=== PATIENT | female | born 2000 | race Caucasian/White ===

== ENCOUNTER 2021-11-08 20:09 | Observation (INO) | payer BC ==
[2021-11-08] MEDS ORDERED: Sodium Chloride 0.9% 1,000 ML IV ONE (21:45)
[2021-11-08] MEDS ORDERED: Sodium Chloride 0.9% 2.5 ML Syringe FLUSH PRN (21:45)
[2021-11-08] MEDS ORDERED: Sodium Chloride 0.9% 10 ML Syringe FLUSH PRN (21:45)
[2021-11-08] MEDS ORDERED: fentaNYL 50 MCG/ML SDV IVPUSH ONE (21:45)
[2021-11-08] MEDS ORDERED: Ondansetron 4 MG/2 ML SDV IVPUSH ONE (21:45)
--- NOTE | 2021-11-08 21:52 | EDM.PDOC ---
ED HPI GENERAL MEDICAL PROBLEM - General Chief Complaint: Abdominal Pain Stated Complaint: EMS ARRIVAL Time Seen by Provider: 11/08/21 20:14 - History of Present Illness INITIAL COMMENTS - FREE TEXT/NARRATIVE: HISTORY AND PHYSICAL: History of present illness: This is a 20-year-old 1 para 0 female who is transferred from [facility] for further evaluation of a possible ectopic . Patient's last menstrual period was approximately September 28. Patient presented to [facility] today secondary to severe pain to her right lower quadrant. Patient denies any recent fevers, shakes, chills. Patient complains of nausea with no vomiting or diarrhea. Patient has any dysuria, frequency or urgency. Patient planes of slight vaginal bleeding. Patient reports no chest pain or shortness of breath. Patient reports pain greatest in the right lower quadrant. Patient has any cough cold or rhinorrhea. There was no ultrasound capabilities at [facility] so she was transferred to [place] [facility] for further evaluation and ultrasound. I did receive a phone call from our cytotechnologist supervisor that she was able to visualize heart activity within the patient's right ovary. Patient denies any history of hypertension, diabetes, liver, lung, kidney problems. Patient denies any tobacco, alcohol, drugs. Patient has no known drug allergies. Review of systems: As per history of present illness and below otherwise all systems reviewed and negative. Past medical history: As per history of present illness and as reviewed below otherwise noncontributory. Surgical history: As per history of present illness and as reviewed below otherwise noncontributory. Social history: No reported history of drug abuse. Family history: As per history of present illness and as reviewed below otherwise noncontributory. Physical exam: This patient was seen and evaluated during the 2019 SARS-CoV-2 novel coronavirus pandemic period. Community viral transmission is ongoing at time of this encounter and the emergency department is operating under pandemic response procedures. Constitutional: Patient is oriented to person, place, and time. Appears well- developed and well-nourished. No distress. HEENT: Moist mucous membranes Head: Normocephalic and atraumatic Eyes: Right eye exhibits no discharge. Left eye exhibits no discharge. No scleral icterus Neck: Normal range of motion. No tracheal deviation present. Cardiovascular: Normal rate and regular rhythm. Pulmonary: Effort normal, no respiratory distress. Abd: Soft, nondistended, no rebound/guarding, no psoas or obturator signs, no tenderness at Mcberney's point, no Chavez's sign. Pt does not present with an exam that would be consistent with an acute surgical abdomen at this time. Patient does have tenderness to palpation to the right lower quadrant. Musculoskeletal: Normal range of motion Neurologic: Alert and oriented to person, place and time. Skin: [place], warm and dry. Psychiatric: Normal mood and affect. Behavior is normal. Judgment and thought content normal. Nursing note and vital signs have been reviewed Diagnostics: Ultrasound pelvis: Consistent with heart activity noted within the right ovary. This is concerning for a right ectopic . Type and screen CBC, CMP, beta-hCG, urinalysis Therapeutics: Fentanyl 50 mcg IV, Zofran 4 mg IV, NSS. Assessment and plan: 20-year-old female who presents ER today from [facility] for further evaluation of possible Covid . Patient's ultrasound here appears to be consistent with an ectopic . Case has been discussed with Dr. Beltrán upon discovery of the ultrasound report. He has agreed to assist us with observing patient in the hospital for definitive management of ectopic . Patient is still complaining of abdominal pain and discomfort. She will be given fentanyl 50 mcg IV as well as Zofran 4 mg IV and will be reevaluated. Definitive disposition and diagnosis as appropriate pending reevaluation and review of above. Abdomen Pain Score (Numeric/FACES): 6 - Related Data Allergies Allergy/AdvReac Type Severity Reaction Status Date / Time No Known Allergies Allergy Verified 11/08/21 20:15 Home Meds: Home Meds . [No Known Home Meds] 11/08/21 [History] Past Medical History HEENT History: Reports: None Cardiovascular History: Reports: None Respiratory History: Reports: None Gastrointestinal History: Reports: None Genitourinary History: Reports: None Other COLLAR FUSER History: hx of possible ovarian cyst Musculoskeletal History: Reports: None Neurological History: Reports: None Psychiatric History: Reports: None Endocrine/Metabolic History: Reports: None Hematologic History: Reports: None Immunologic History: Reports: None Oncologic (Cancer) History: Reports: None Dermatologic History: Reports: None - Infectious Disease History Infectious Disease History: Reports: None - Past Surgical History Head Surgeries/Procedures: Reports: None Cardiovascular Surgical History: Reports: None Social & Family History - Family History HEENT: Reports: None - Tobacco Use Tobacco Use Status *Q: Never Tobacco User Second Hand Smoke Exposure: No - Caffeine Use Caffeine Use: Reports: Coffee, Soda - Recreational Drug Use Recreational Drug Use: No ED ROS GENERAL - Review of Systems Review Of Systems: See Below ED EXAM, GENERAL - Physical Exam Exam: See Below Course - Vital Signs Last Recorded V/S: Last Vital Signs Temp 98.2 F 11/08/21 20:16 Pulse 105 H 11/08/21 20:26 Resp 18 11/08/21 20:16 BP 139/77 11/08/21 20:26 Pulse Ox 98 11/08/21 20:26 - Orders/Labs/Meds Orders: Active Orders 24 hr Category Date Time Status Patient Status [ADT] Routine ADT 11/08/21 21:47 Active OB 1st Tri Sgl 1st Gest [US] Stat Exams 11/08/21 20:16 Taken CBC WITH AUTO DIFF [HEME] Stat Lab 11/08/21 21:45 Ordered COMPREHENSIVE METABOLIC PN,CMP [CHEM] Stat Lab 11/08/21 21:45 Ordered HCG QUANTITATIVE [CHEM] Stat Lab 11/08/21 21:45 Ordered TYPE AND SCREEN [BBK] Stat Lab 11/08/21 21:46 Ordered Sodium Chloride 0.9% [Normal Saline] 1,000 ml Med 11/08/21 21:45 Active IV .Bolus Sodium Chloride 0.9% [Saline Flush] Med 11/08/21 21:45 Active 10 ml FLUSH ASDIRECTED PRN Sodium Chloride 0.9% [Saline Flush] Med 11/08/21 21:45 Active 2.5 ml FLUSH ASDIRECTED PRN Saline Lock Insert [OM.PC] Stat Oth 11/08/21 21:45 Ordered Medication Orders Sodium Chloride (Normal Saline) 1,000 mls @ 999 mls/hr IV .Bolus ONE Stop: 11/08/21 22:45 Sodium Chloride (Sodium Chloride 0.9% 10 Ml Syringe) 10 ml FLUSH ASDIRECTED PRN PRN Reason: Keep Vein Open Sodium Chloride (Sodium Chloride 0.9% 2.5 Ml Syringe) 2.5 ml FLUSH ASDIRECTED PRN PRN Reason: Keep Vein Open Meds: Medications Generic Name Dose Route Start Last Admin Trade Name Freq PRN Reason Stop Dose Admin Sodium Chloride 1,000 mls @ 999 mls/hr 11/08/21 21:45 Normal Saline IV 11/08/21 22:45 .Bolus ONE Sodium Chloride 10 ml 11/08/21 21:45 Sodium Chloride 0.9% 10 Ml Syringe FLUSH ASDIRECTED PRN Keep Vein Open Sodium Chloride 2.5 ml 11/08/21 21:45 Sodium Chloride 0.9% 2.5 Ml Syringe FLUSH ASDIRECTED PRN Keep Vein Open Discontinued Medications Generic Name Dose Route Start Last Admin Trade Name Zoran PRN Reason Stop Dose Admin Fentanyl 50 mcg 11/08/21 21:45 Fentanyl 50 Mcg/Ml Sdv IVPUSH 11/08/21 21:46 ONETIME ONE Ondansetron HCl 4 mg 11/08/21 21:45 Ondansetron 4 Mg/2 Ml Sdv IVPUSH 11/08/21 21:46 ONETIME ONE Departure - Departure Time of Disposition: 21:51 Disposition: Refer to Observation Condition: Good Clinical Impression: Ectopic - Discharge Information Referrals: PCP,None [Primary Care Provider] - Sepsis Event Note (ED) - Evaluation Sepsis Screening Result: No Definite Risk - Focused Exam Vital Signs: Vital Signs Temp Pulse Resp BP Pulse Ox 11/08/21 20:26 105 H 139/77 98 11/08/21 20:16 98.2 F 98 18 139/77 98 - My Orders Last 24 Hours: My Active Orders 11/08/21 20:16 OB 1st Tri Sgl 1st Gest [US] Stat 11/08/21 21:45 CBC WITH AUTO DIFF [HEME] Stat COMPREHENSIVE METABOLIC PN,CMP [CHEM] Stat HCG QUANTITATIVE [CHEM] Stat Sodium Chloride 0.9% [Normal Saline] 1,000 ml IV .Bolus Sodium Chloride 0.9% [Saline Flush] 10 ml FLUSH ASDIRECTED PRN Sodium Chloride 0.9% [Saline Flush] 2.5 ml FLUSH ASDIRECTED PRN Saline Lock Insert [OM.PC] Stat 11/08/21 21:46 TYPE AND SCREEN [BBK] Stat 11/08/21 21:47 Patient Status [ADT] Routine - Assessment/Plan Last 24 Hours: My Active Orders 11/08/21 20:16 OB 1st Tri Sgl 1st Gest [US] Stat 11/08/21 21:45 CBC WITH AUTO DIFF [HEME] Stat COMPREHENSIVE METABOLIC PN,CMP [CHEM] Stat HCG QUANTITATIVE [CHEM] Stat Sodium Chloride 0.9% [Normal Saline] 1,000 ml IV .Bolus Sodium Chloride 0.9% [Saline Flush] 10 ml FLUSH ASDIRECTED PRN Sodium Chloride 0.9% [Saline Flush] 2.5 ml FLUSH ASDIRECTED PRN Saline Lock Insert [OM.PC] Stat 11/08/21 21:46 TYPE AND SCREEN [BBK] Stat 11/08/21 21:47 Patient Status [ADT] Routine
--- NOTE | 2021-11-08 22:08 | US ---
INDICATION: Pelvic pain and bleeding. Early . TECHNIQUE: Endovaginal pelvic ultrasound utilizing grayscale, color Doppler, and spectral Doppler sonography. COMPARISON: None available. FINDINGS: Anteverted uterus with endometrial stripe measuring 13 mm in thickness. No intrauterine gestational sac identified. The right adnexal region demonstrates a heterogeneous mixed echogenicity structure measuring 6 x 4 x 4.7 x 4.1 cm. Gestational sac located within this structure. pole identified with a crown-rump length of 3.1 cm, corresponding with an estimated gestational age of 6 weeks and 0 days. Positive cardiac activity identified with a heart rate of 113 beats per minute. Notably, a normal right ovary is not definitively visualized. Left ovary measures 2.8 x 1.6 x 2.1 cm. Small volume pelvic free fluid. IMPRESSION: Right adnexal ectopic with positive cardiac activity and an estimated gestational age of 6 weeks and 0 days based on crown-rump length. A normal right ovary is not definitively visualized and therefore location of the ectopic relative to the ovary is uncertain. Small-moderate volume pelvic free fluid. Emergent obstetric/gynecologic consultation recommended. Case discussed with Dr. Ryder on 11/08/2021 at 9:50 p.m. Dictated by Fritz Nieto MD @ 11/08/2021 10:07:25 PM Dictated by: Fritz Nieto MD @ 11/08/2021 22:08:30 (Electronically Signed)
[2021-11-08 22:56] LABS: BLOOD UREA NITROGEN,BUN 9 mg/dL (7.0-18.0); CARBON DIOXIDE,CO2 26.7 mmol/L (21.0-32.0); CHLORIDE,CL 102 mmol/L (98-107); GLUCOSE RANDOM 105 mg/dL (74-106); POTASSIUM,K 4.7 mmol/L (3.5-5.1); SODIUM,NA 139 mmol/L (136-145)
[2021-11-09] MEDS ORDERED: Morphine 4 MG/ML VIAL IVPUSH PRN (00:22)
[2021-11-09] MEDS ORDERED: Ondansetron 4 MG/2 ML SDV IVPUSH PRN (00:22)
[2021-11-09] MEDS: Sodium Chloride 0.9% 1,000 ML IV SCH ×2 (01:00→08:37)
--- NOTE | 2021-11-09 09:29 | PCM.HP.2 ---
H&P History of Present Illness - General Date of Service: 11/09/21 Admit Problem/Dx: Admission Diagnosis/Problem Admission Diagnosis/Problem Ectopic Source of Information: Patient History Limitations: Reports: No Limitations - History of Present Illness Onset of Symptoms: Reports: Today, Sudden Duration of Symptoms: Reports: Constant Location: Reports: Abdomen Quality: Reports: Throbbing Severity: Moderate Improves with: Reports: None Worsens with: Reports: None Associated Symptoms: Reports: No Other Symptoms Abdomen Pain Score (Numeric/FACES): 6 Left Lower Abdomen Pain Score (Numeric/FACES): 2 Right Lower Abdomen Pain Score (Numeric/FACES): 5 - Related Data Allergies/Adverse Reactions: Allergies Allergy/AdvReac Type Severity Reaction Status Date / Time No Known Allergies Allergy Verified 11/08/21 20:15 Home Medications: Home Meds . [No Known Home Meds] 11/08/21 [History] Past Medical History HEENT History: Reports: None Cardiovascular History: Reports: None Respiratory History: Reports: None Gastrointestinal History: Reports: None Genitourinary History: Reports: Pyelonephritis, UTI, Recurrent, Other (See Below) Other Genitourinary History: reflux as child and had a bilateral ureteral reimplantation Other OB/BYN History: hx of possible ovarian cyst Musculoskeletal History: Reports: Fracture Neurological History: Reports: None Psychiatric History: Reports: None Endocrine/Metabolic History: Reports: None Hematologic History: Reports: None Immunologic History: Reports: None Oncologic (Cancer) History: Reports: None Dermatologic History: Reports: None - Infectious Disease History Infectious Disease History: Reports: Novel Coronavirus - Past Surgical History Head Surgeries/Procedures: Reports: None HEENT Surgical History: Reports: None Cardiovascular Surgical History: Reports: None Respiratory Surgical History: Reports: None GI Surgical History: Reports: None Female Surgical History: Reports: None Musculoskeletal Surgical History: Reports: None Social & Family History - Family History HEENT: Reports: None Cardiac: Reports: [place] Respiratory: Reports: None GI: Reports: None : Reports: None OBGYN: Reports: Endometriosis, , Other (See Below) Other OBGYN Family History: Ovarian cysts Musculoskeletal: Reports: Osteoarthritis Neurological: Reports: None Psychiatric: Reports: None Endocrine/Metabolic: Reports: None Hematologic: Reports: None Immunologic: Reports: None Dermatologic: Reports: None Oncologic: Reports: Cervix - Tobacco Use Tobacco Use Status *Q: Never Tobacco User Second Hand Smoke Exposure: No - Caffeine Use Caffeine Use: Reports: Coffee, Soda, Tea - Recreational Drug Use Recreational Drug Use: No H&P Review of Systems - Review of Systems: Review Of Systems: See Below General: Reports: No Symptoms HEENT: Reports: No Symptoms Pulmonary: Reports: No Symptoms Cardiovascular: Reports: No Symptoms Gastrointestinal: Reports: No Symptoms Genitourinary: Reports: No Symptoms Musculoskeletal: Reports: No Symptoms Skin: Reports: No Symptoms Psychiatric: Reports: No Symptoms Neurological: Reports: No Symptoms Hematologic/Lymphatic: Reports: No Symptoms Immunologic: Reports: No Symptoms Exam - Exam Exam: See Below - Vital Signs Vital Signs: Last Vital Signs Temp 36.2 C 11/09/21 04:00 Pulse 78 11/09/21 04:00 Resp 16 11/09/21 04:00 BP 114/57 L 11/09/21 04:00 Pulse Ox 97 11/09/21 04:00 Weight: 62.596 kg - Exam General: Alert, Oriented, 4 HEENT: PERRLA, Hearing Intact, Mucosa Moist & [place], Nares Patent, Normal Nasal Septum, Posterior Pharynx Clear, Conjunctiva Clear, EOMI, EACs Clear, TMs Clear Neck: Supple, Trachea Midline, 2 Lungs: Clear to Auscultation, Normal Respiratory Effort Cardiovascular: Regular Rate, Regular Rhythm GI/Abdominal Exam: Normal Bowel Sounds, Soft, Non-Tender, No Organomegaly, No Distention, No Abnormal Bruit, No Mass, Pelvis Stable (Female) Exam: Normal External Exam, Normal Speculum Exam, Normal Bimanual Exam Rectal (Female) Exam: Normal Exam, Normal Rectal Tone Back Exam: Normal Inspection, Full Range of Motion, NT Extremities: Normal Inspection, Normal Range of Motion, Non-Tender, No Pedal Edema, Normal Capillary Refill Skin: Warm, Dry, Intact Neurological: Cranial Nerves Intact, Reflexes Equal Bilateral Neuro Extensive - Mental Status: Alert, Oriented x3, Normal Mood/Affect, Normal Cognition Neuro Extensive - Motor, Sensory, Reflexes: CN II-XII Intact, Normal Gait, Normal Reflexes Psychiatric: Alert, Normal Affect, Normal Mood - Patient Data Lab Results Last 24 hrs: Laboratory Results - last 24 hr 11/08/21 11/08/21 11/08/21 Range/Units 21:43 21:45 21:45 WBC 16.76 H (4.0-11.0) K/uL RBC 4.06 L (4.30-5.90) M/uL Hgb 13.0 (12.0-16.0) g/dL Hct 37.2 (36.0-46.0) % MCV 91.6 (80.0-98.0) fL MCH 32.0 (27.0-32.0) pg MCHC 34.9 (31.0-37.0) g/dL RDW Std Deviation 40.3 (28.0-62.0) fl RDW Coeff of Wale 12 (11.0-15.0) % Plt Count 310 (150-400) K/uL MPV 10.90 (7.40-12.00) fL Neut % (Auto) 87.1 H (48.0-80.0) % Lymph % (Auto) 8.7 L (16.0-40.0) % Smith % (Auto) 4.1 (0.0-15.0) % Eos % (Auto) 0.0 (0.0-7.0) % Baso % (Auto) 0.1 (0.0-1.5) % Neut # (Auto) 14.6 H (1.4-5.7) K/uL Lymph # (Auto) 1.5 (0.6-2.4) K/uL Smith # (Auto) 0.7 (0.0-0.8) K/uL Eos # (Auto) 0.0 (0.0-0.7) K/uL Baso # (Auto) 0.0 (0.0-0.1) K/uL Nucleated RBC % 0.0 /100WBC Nucleated RBCs # 0 K/uL Sodium 139 (136-145) mmol/L Potassium 4.7 (3.5-5.1) mmol/L Chloride 102 (98-107) mmol/L Carbon Dioxide 26.7 (21.0-32.0) mmol/L BUN 9 (7.0-18.0) mg/dL Creatinine 0.7 (0.6-1.0) mg/dL Est Cr Clr Drug Dosing 113.43 mL/min Estimated GFR (MDRD) > 60.0 ml/min Glucose 105 (74-106) mg/dL Calcium 9.2 (8.5-10.1) mg/dL Total Bilirubin 0.7 (0.2-1.0) mg/dL AST 23 (15-37) IU/L ALT 16 (14-63) IU/L Alkaline Phosphatase 79 (46-116) U/L Total Protein 8.0 (6.4-8.2) g/dL Albumin 4.9 (3.4-5.0) g/dL Globulin 3.1 (2.6-4.0) g/dL Albumin/Globulin Ratio 1.6 (0.9-1.6) HCG, Quant 1983.0 mIU/mL SARS-CoV-2 RNA (ANNIKA) (NEGATIVE) Blood Type O POSITIVE Antibody Screen NEGATIVE 11/08/21 11/09/21 Range/Units 22:00 06:12 WBC (4.0-11.0) K/uL RBC (4.30-5.90) M/uL Hgb 11.6 L (12.0-16.0) g/dL Hct 33.9 L (36.0-46.0) % MCV (80.0-98.0) fL MCH (27.0-32.0) pg MCHC (31.0-37.0) g/dL RDW Std Deviation (28.0-62.0) fl RDW Coeff of Wale (11.0-15.0) % Plt Count (150-400) K/uL MPV (7.40-12.00) fL Neut % (Auto) (48.0-80.0) % Lymph % (Auto) (16.0-40.0) % Smith % (Auto) (0.0-15.0) % Eos % (Auto) (0.0-7.0) % Baso % (Auto) (0.0-1.5) % Neut # (Auto) (1.4-5.7) K/uL Lymph # (Auto) (0.6-2.4) K/uL Smith # (Auto) (0.0-0.8) K/uL Eos # (Auto) (0.0-0.7) K/uL Baso # (Auto) (0.0-0.1) K/uL Nucleated RBC % /100WBC Nucleated RBCs # K/uL Sodium (136-145) mmol/L Potassium (3.5-5.1) mmol/L Chloride (98-107) mmol/L Carbon Dioxide (21.0-32.0) mmol/L BUN (7.0-18.0) mg/dL Creatinine (0.6-1.0) mg/dL Est Cr Clr Drug Dosing mL/min Estimated GFR (MDRD) ml/min Glucose (74-106) mg/dL Calcium (8.5-10.1) mg/dL Total Bilirubin (0.2-1.0) mg/dL AST (15-37) IU/L ALT (14-63) IU/L Alkaline Phosphatase (46-116) U/L Total Protein (6.4-8.2) g/dL Albumin (3.4-5.0) g/dL Globulin (2.6-4.0) g/dL Albumin/Globulin Ratio (0.9-1.6) HCG, Quant mIU/mL SARS-CoV-2 RNA (ANNIKA) NEGATIVE (NEGATIVE) Blood Type Antibody Screen Result Diagrams: 11/09/21 06:12 11/08/21 21:45 Imaging Impressions Last 24 hrs: To have ultrasound which is confirmed a right tubal Sepsis Event Note - Evaluation Sepsis Screening Result: No Definite Risk - Focused Exam Vital Signs: Vital Signs Temp Pulse Resp BP Pulse Ox 11/09/21 04:00 36.2 C 78 16 114/57 L 97 11/08/21 23:45 37.3 C 72 14 119/72 98 11/08/21 23:18 36.8 C 92 18 135/68 96 11/08/21 22:56 78 16 133/56 L 97 11/08/21 22:00 86 16 140/80 97 Problem List Initiated/Reviewed/Updated: Yes Orders Last 24hrs: Active Orders 24 hr Category Date Time Status Patient Status [ADT] Routine ADT 11/08/21 21:47 Active Telemetry Monitoring [Cardiac Monitoring] [RC] Q8H Care 11/08/21 23:23 Active NPO Now [Nothing per Oral Now Diet] [DIET] Diet 11/09/21 Breakfast Active Morphine Med 11/09/21 00:22 Active 4 mg IVPUSH Q4H PRN Ondansetron [Zofran] Med 11/09/21 00:22 Active 4 mg IVPUSH Q4H PRN Sodium Chloride 0.9% [Normal Saline] 1,000 ml Med 11/09/21 00:30 Active IV ASDIRECTED Sodium Chloride 0.9% [Saline Flush] Med 11/08/21 21:45 Active 10 ml FLUSH ASDIRECTED PRN Sodium Chloride 0.9% [Saline Flush] Med 11/08/21 21:45 Active 2.5 ml FLUSH ASDIRECTED PRN Saline Lock Insert [OM.PC] Stat Oth 11/08/21 21:45 Ordered Medication Orders Sodium Chloride (Normal Saline) 1,000 mls @ 125 mls/hr IV ASDIRECTED STEVE Last Admin: 11/09/21 08:37 Dose: 125 mls/hr Documented by: Infusion: 11/09/21 08:37 Dose: 125 mls/hr Documented by: Admin: 11/09/21 01:00 Dose: 125 mls/hr Documented by: CHRISTIAN Morphine Sulfate (Morphine 4 Mg/Ml Vial) 4 mg IVPUSH Q4H PRN PRN Reason: Pain Last Admin: 11/09/21 06:28 Dose: 4 mg Documented by: CHRISTIAN Ondansetron HCl (Ondansetron 4 Mg/2 Ml Sdv) 4 mg IVPUSH Q4H PRN PRN Reason: Nausea/Vomiting Last Admin: 11/09/21 06:24 Dose: 4 mg Documented by: CHRISTIAN Sodium Chloride (Sodium Chloride 0.9% 10 Ml Syringe) 10 ml FLUSH ASDIRECTED PRN PRN Reason: Keep Vein Open Last Admin: 11/08/21 22:02 Dose: 10 ml Documented by: SYEDA Sodium Chloride (Sodium Chloride 0.9% 2.5 Ml Syringe) 2.5 ml FLUSH ASDIRECTED PRN PRN Reason: Keep Vein Open Last Admin: 11/08/21 22:04 Dose: 2.5 ml Documented by: SYEDA Assessment/Plan Comment:: 19 years old patient nulliparous she presented to the emergency room with right lower quadrant pain constant her test is positive her last normal menstrual cycle admitted to September she is not using any method of control physical examination is consistent with a tubal abdominal and pelvic ultrasound confirmed a right tubal . The patient to be admitted to the hospital to the outpatient and most likely she would have a diagnostic laparoscopy and excision of her right tubal . The diagnoses and the treatment discussed with the patient and her boyfriend she consented to the procedures we are planning to do it sometime today around noon - Mortality Measure Prognosis:: Good
--- NOTE | 2021-11-09 13:02 | PCM.PREANE ---
Preanesthetic Assessment - Procedure Proposed Procedure: Dx Lap, poss unilateral salpingectomy/oophorectomy - Anesthesia/Transfusion/Family Hx Anesthesia History: Prior Anesthesia Without Reaction Family History of Anesthesia Reaction: No - Review of Systems General: No Symptoms Pulmonary: No Symptoms Cardiovascular: No Symptoms Gastrointestinal: No Symptoms Neurological: No Symptoms Other: Reports: None - Physical Assessment NPO Status Date: 11/08/21 NPO Status Time: 23:00 Vital Signs: Last Vital Signs Temp 97.9 F 11/09/21 08:40 Pulse 67 11/09/21 08:40 Resp 16 11/09/21 08:40 BP 123/69 11/09/21 08:40 Pulse Ox 97 11/09/21 08:40 Height: 5 ft 5 in Weight: 62.596 kg ASA Class: 2 Mental Status: Alert & Oriented x3 Airway Class: Mallampati = 2 Dentition: Reports: Normal Dentition Thyro-Mental Finger Breadths: 3 Mouth Opening Finger Breadths: 3 ROM/Head Extension: Full Lungs: Clear to Auscultation, Normal Respiratory Effort Cardiovascular: Regular Rate, Regular Rhythm - Lab Values: Laboratory Last Values WBC 16.76 K/uL (4.0-11.0) H 11/08/21 21:45 RBC 4.06 M/uL (4.30-5.90) L 11/08/21 21:45 Hgb 11.6 g/dL (12.0-16.0) L 11/09/21 06:12 Hct 33.9 % (36.0-46.0) L 11/09/21 06:12 MCV 91.6 fL (80.0-98.0) 11/08/21 21:45 MCH 32.0 pg (27.0-32.0) 11/08/21 21:45 MCHC 34.9 g/dL (31.0-37.0) 11/08/21 21:45 RDW Std Deviation 40.3 fl (28.0-62.0) 11/08/21 21:45 RDW Coeff of Wale 12 % (11.0-15.0) 11/08/21 21:45 Plt Count 310 K/uL (150-400) 11/08/21 21:45 MPV 10.90 fL (7.40-12.00) 11/08/21 21:45 Neut % (Auto) 87.1 % (48.0-80.0) H 11/08/21 21:45 Lymph % (Auto) 8.7 % (16.0-40.0) L 11/08/21 21:45 [place] % (Auto) 4.1 % (0.0-15.0) 11/08/21 21:45 Eos % (Auto) 0.0 % (0.0-7.0) 11/08/21 21:45 Baso % (Auto) 0.1 % (0.0-1.5) 11/08/21 21:45 Neut # (Auto) 14.6 K/uL (1.4-5.7) H 11/08/21 21:45 Lymph # (Auto) 1.5 K/uL (0.6-2.4) 11/08/21 21:45 [place] # (Auto) 0.7 K/uL (0.0-0.8) 11/08/21 21:45 Eos # (Auto) 0.0 K/uL (0.0-0.7) 11/08/21 21:45 Baso # (Auto) 0.0 K/uL (0.0-0.1) 11/08/21 21:45 Nucleated RBC % 0.0 /100WBC 11/08/21 21:45 Nucleated RBCs # 0 K/uL 11/08/21 21:45 Sodium 139 mmol/L (136-145) 11/08/21 21:45 Potassium 4.7 mmol/L (3.5-5.1) 11/08/21 21:45 Chloride 102 mmol/L (98-107) 11/08/21 21:45 Carbon Dioxide 26.7 mmol/L (21.0-32.0) 11/08/21 21:45 BUN 9 mg/dL (7.0-18.0) 11/08/21 21:45 Creatinine 0.7 mg/dL (0.6-1.0) 11/08/21 21:45 Est Cr Clr Drug Dosing 113.43 mL/min 11/08/21 21:45 Estimated GFR (MDRD) > 60.0 ml/min 11/08/21 21:45 Glucose 105 mg/dL (74-106) 11/08/21 21:45 Calcium 9.2 mg/dL (8.5-10.1) 11/08/21 21:45 Total Bilirubin 0.7 mg/dL (0.2-1.0) 11/08/21 21:45 AST 23 IU/L (15-37) 11/08/21 21:45 ALT 16 IU/L (14-63) 11/08/21 21:45 Alkaline Phosphatase 79 U/L (46-116) 11/08/21 21:45 Total Protein 8.0 g/dL (6.4-8.2) 11/08/21 21:45 Albumin 4.9 g/dL (3.4-5.0) 11/08/21 21:45 Globulin 3.1 g/dL (2.6-4.0) 11/08/21 21:45 Albumin/Globulin Ratio 1.6 (0.9-1.6) 11/08/21 21:45 HCG, Quant 1983.0 mIU/mL 11/08/21 21:45 SARS-CoV-2 RNA (ANNIKA) NEGATIVE (NEGATIVE) 11/08/21 22:00 Blood Type O POSITIVE 11/08/21 21:43 Antibody Screen NEGATIVE 11/08/21 21:43 - Allergies Allergies/Adverse Reactions: Allergies Allergy/AdvReac Type Severity Reaction Status Date / Time No Known Allergies Allergy Verified 11/08/21 20:15 - Acknowledgements Anesthesia Type Planned: General Anesthesia Pt an Appropriate Candidate for the Planned Anesthesia: Yes Alternatives and Risks of Anesthesia Discussed w Pt/Guardian: Yes Pt/Guardian Understands and Agrees with Anesthesia Plan: Yes PreAnesthesia Questionnaire HEENT History: Reports: None Cardiovascular History: Reports: None Respiratory History: Reports: None Gastrointestinal History: Reports: None Genitourinary History: Reports: Pyelonephritis, UTI, Recurrent, Other (See Below) Other Genitourinary History: reflux as child and had a bilateral ureteral reimplantation Other OB/BYN History: hx of possible ovarian cyst Musculoskeletal History: Reports: Fracture Neurological History: Reports: None Psychiatric History: Reports: None Endocrine/Metabolic History: Reports: None Hematologic History: Reports: None Immunologic History: Reports: None Oncologic (Cancer) History: Reports: None Dermatologic History: Reports: None - Infectious Disease History Infectious Disease History: Reports: Novel Coronavirus - Past Surgical History Head Surgeries/Procedures: Reports: None HEENT Surgical History: Reports: None Cardiovascular Surgical History: Reports: None Respiratory Surgical History: Reports: None GI Surgical History: Reports: None Female Surgical History: Reports: None Musculoskeletal Surgical History: Reports: None - SUBSTANCE USE Tobacco Use Status *Q: Never Tobacco User Second Hand Smoke Exposure: No Recreational Drug Use History: No - HOME MEDS Home Medications: Home Meds . [No Known Home Meds] 11/08/21 [History] - CURRENT (IN HOUSE) MEDS Current Meds: Current Medications Sodium Chloride (Normal Saline) 1,000 mls @ 125 mls/hr IV ASDIRECTED STEVE Last Admin: 11/09/21 08:37 Dose: 125 mls/hr Documented by: Morphine Sulfate (Morphine 4 Mg/Ml Vial) 4 mg IVPUSH Q4H PRN PRN Reason: Pain Last Admin: 11/09/21 06:28 Dose: 4 mg Documented by: Ondansetron HCl (Ondansetron 4 Mg/2 Ml Sdv) 4 mg IVPUSH Q4H PRN PRN Reason: Nausea/Vomiting Last Admin: 11/09/21 06:24 Dose: 4 mg Documented by: Sodium Chloride (Sodium Chloride 0.9% 10 Ml Syringe) 10 ml FLUSH ASDIRECTED PRN PRN Reason: Keep Vein Open Last Admin: 11/08/21 22:02 Dose: 10 ml Documented by: Sodium Chloride (Sodium Chloride 0.9% 2.5 Ml Syringe) 2.5 ml FLUSH ASDIRECTED PRN PRN Reason: Keep Vein Open Last Admin: 11/08/21 22:04 Dose: 2.5 ml Documented by: Discontinued Medications Fentanyl (Fentanyl 50 Mcg/Ml Sdv) 50 mcg IVPUSH ONETIME ONE Stop: 11/08/21 21:46 Last Admin: 11/08/21 21:58 Dose: 50 mcg Documented by: Sodium Chloride (Normal Saline) 1,000 mls @ 999 mls/hr IV .Bolus ONE Stop: 11/08/21 22:45 Last Admin: 11/08/21 21:53 Dose: 999 mls/hr Documented by: Ondansetron HCl (Ondansetron 4 Mg/2 Ml Sdv) 4 mg IVPUSH ONETIME ONE Stop: 11/08/21 21:46 Last Admin: 11/08/21 21:56 Dose: 4 mg Documented by:
[2021-11-09] MEDS ORDERED: Dexmedetomidine 200 MCG/2 ML SDV ONE (13:34)
[2021-11-09] MEDS ORDERED: Dexamethasone 4 MG/ML 5 ML MDV ONE (13:34)
[2021-11-09] MEDS ORDERED: Esmolol 100 MG/10 ML SDV ONE (13:34)
[2021-11-09] MEDS ORDERED: Rocuronium Bromide 50 MG/5 ML Syringe ONE (13:34)
[2021-11-09] MEDS ORDERED: fentaNYL 100 MCG/2 ML SDV ONE (13:35)
[2021-11-09] MEDS ORDERED: Midazolam 1 MG/ML 2 ML SDV ONE (13:35)
[2021-11-09] MEDS ORDERED: Propofol 200 MG/20 ML SDV ONE (13:35)
[2021-11-09] MEDS ORDERED: Lidocaine 2% 5 ML SDV ONE (13:36)
[2021-11-09] MEDS ORDERED: Water For Injection, Sterile 20 ML ONE (13:36)
[2021-11-09] MEDS ORDERED: Sugammadex Sodium 200 MG/2 ML VIAL ONE (14:39)
[2021-11-09] MEDS ORDERED: Ketorolac 30 MG/ML SDV ONE (14:39)
[2021-11-09] MEDS ORDERED: Ondansetron 4 MG/2 ML SDV ONE (14:39)
[2021-11-09] MEDS ORDERED: Octyl 2-Cyanoacrylate 1 Tube ONE (14:50)
--- NOTE | 2021-11-09 15:02 | PCM.OPNOTE ---
- General Post-Op/Procedure Note Date of Surgery/Procedure: 11/09/21 Operative Procedure(s): DignosticLaparoscopy, R. Salpengectomy Pre Op Diagnosis: R. tibal Post-Op Diagnosis: Same Anesthesia Technique: General ET Tube Primary Surgeon: Chapito Beltrán EBL in mLs: 200 Complications: None Condition: Stable Free Text/Narrative:: Intake & Output 11/09/21 11/09/21 11/09/21 06:59 14:59 22:59 Output Total 120 Balance -120
--- NOTE | 2021-11-09 15:03 | PCM.DCSUM1 ---
Discharge Summary - Hospital Course Diagnosis: Stroke: No - Discharge Data Discharge Date: 11/09/21 Discharge Disposition: Home, Self-Care 01 Condition: Stable - Referral to Home Health Primary Care Physician: PCP None - Patient Summary/Data Operative Procedure(s) Performed: DignosticLaparoscopy, R. Salpengectomy - Patient Instructions Diet: Usual Diet as Tolerated Activity: As Tolerated Driving: Do Not Drive Showering/Bathing: May Shower in 3 Days Notify Provider of: Fever, Increased Pain - Discharge Plan Home Medications: Home Meds . [No Known Home Meds] 11/08/21 [History] Patient Handouts: Ectopic , Pirm-jn-[id number] Forms: ED Department Discharge Referrals: PCP,None [Primary Care Provider] - - Discharge Summary/Plan Comment DC Time >30 min.: Yes Total # of Minutes for Discharge Time: 30 - General Info Date of Service: 11/09/21 Functional Status: Reports: Pain Controlled - Review of Systems General: Reports: No Symptoms HEENT: Reports: No Symptoms Pulmonary: Reports: No Symptoms Cardiovascular: Reports: No Symptoms Gastrointestinal: Reports: No Symptoms Genitourinary: Reports: No Symptoms Musculoskeletal: Reports: No Symptoms Skin: Reports: No Symptoms Neurological: Reports: No Symptoms Psychiatric: Reports: No Symptoms - Patient Data Vitals - Most Recent: Last Vital Signs Temp 36.6 C 11/09/21 08:40 Pulse 67 11/09/21 08:40 Resp 16 11/09/21 08:40 BP 123/69 11/09/21 08:40 Pulse Ox 97 11/09/21 08:40 Weight - Most Recent: 62.596 kg I&O - Last 24 hours: Intake & Output 11/09/21 11/09/21 11/09/21 06:59 14:59 22:59 Output Total 120 Balance -120 Lab Results - Last 24 hrs: Laboratory Results - last 24 hr 11/08/21 11/08/21 11/08/21 Range/Units 21:43 21:45 21:45 WBC 16.76 H (4.0-11.0) K/uL RBC 4.06 L (4.30-5.90) M/uL Hgb 13.0 (12.0-16.0) g/dL Hct 37.2 (36.0-46.0) % MCV 91.6 (80.0-98.0) fL MCH 32.0 (27.0-32.0) pg MCHC 34.9 (31.0-37.0) g/dL RDW Std Deviation 40.3 (28.0-62.0) fl RDW Coeff of Wale 12 (11.0-15.0) % Plt Count 310 (150-400) K/uL MPV 10.90 (7.40-12.00) fL Neut % (Auto) 87.1 H (48.0-80.0) % Lymph % (Auto) 8.7 L (16.0-40.0) % [place] % (Auto) 4.1 (0.0-15.0) % Eos % (Auto) 0.0 (0.0-7.0) % Baso % (Auto) 0.1 (0.0-1.5) % Neut # (Auto) 14.6 H (1.4-5.7) K/uL Lymph # (Auto) 1.5 (0.6-2.4) K/uL [place] # (Auto) 0.7 (0.0-0.8) K/uL Eos # (Auto) 0.0 (0.0-0.7) K/uL Baso # (Auto) 0.0 (0.0-0.1) K/uL Nucleated RBC % 0.0 /100WBC Nucleated RBCs # 0 K/uL Sodium 139 (136-145) mmol/L Potassium 4.7 (3.5-5.1) mmol/L Chloride 102 (98-107) mmol/L Carbon Dioxide 26.7 (21.0-32.0) mmol/L BUN 9 (7.0-18.0) mg/dL Creatinine 0.7 (0.6-1.0) mg/dL Est Cr Clr Drug Dosing 113.43 mL/min Estimated GFR (MDRD) > 60.0 ml/min Glucose 105 (74-106) mg/dL Calcium 9.2 (8.5-10.1) mg/dL Total Bilirubin 0.7 (0.2-1.0) mg/dL AST 23 (15-37) IU/L ALT 16 (14-63) IU/L Alkaline Phosphatase 79 (46-116) U/L Total Protein 8.0 (6.4-8.2) g/dL Albumin 4.9 (3.4-5.0) g/dL Globulin 3.1 (2.6-4.0) g/dL Albumin/Globulin Ratio 1.6 (0.9-1.6) HCG, Quant 1983.0 mIU/mL SARS-CoV-2 RNA (ANNIKA) (NEGATIVE) Blood Type O POSITIVE Antibody Screen NEGATIVE 11/08/21 11/09/21 Range/Units 22:00 06:12 WBC (4.0-11.0) K/uL RBC (4.30-5.90) M/uL Hgb 11.6 L (12.0-16.0) g/dL Hct 33.9 L (36.0-46.0) % MCV (80.0-98.0) fL MCH (27.0-32.0) pg MCHC (31.0-37.0) g/dL RDW Std Deviation (28.0-62.0) fl RDW Coeff of Wale (11.0-15.0) % Plt Count (150-400) K/uL MPV (7.40-12.00) fL Neut % (Auto) (48.0-80.0) % Lymph % (Auto) (16.0-40.0) % [place] % (Auto) (0.0-15.0) % Eos % (Auto) (0.0-7.0) % Baso % (Auto) (0.0-1.5) % Neut # (Auto) (1.4-5.7) K/uL Lymph # (Auto) (0.6-2.4) K/uL [place] # (Auto) (0.0-0.8) K/uL Eos # (Auto) (0.0-0.7) K/uL Baso # (Auto) (0.0-0.1) K/uL Nucleated RBC % /100WBC Nucleated RBCs # K/uL Sodium (136-145) mmol/L Potassium (3.5-5.1) mmol/L Chloride (98-107) mmol/L Carbon Dioxide (21.0-32.0) mmol/L BUN (7.0-18.0) mg/dL Creatinine (0.6-1.0) mg/dL Est Cr Clr Drug Dosing mL/min Estimated GFR (MDRD) ml/min Glucose (74-106) mg/dL Calcium (8.5-10.1) mg/dL Total Bilirubin (0.2-1.0) mg/dL AST (15-37) IU/L ALT (14-63) IU/L Alkaline Phosphatase (46-116) U/L Total Protein (6.4-8.2) g/dL Albumin (3.4-5.0) g/dL Globulin (2.6-4.0) g/dL Albumin/Globulin Ratio (0.9-1.6) HCG, Quant mIU/mL SARS-CoV-2 RNA (ANNIKA) NEGATIVE (NEGATIVE) Blood Type Antibody Screen Med Orders - Current: Current Medications Sodium Chloride (Normal Saline) 1,000 mls @ 125 mls/hr IV ASDIRECTED STEVE Last Admin: 11/09/21 08:37 Dose: 125 mls/hr Documented by: Morphine Sulfate (Morphine 4 Mg/Ml Vial) 4 mg IVPUSH Q4H PRN PRN Reason: Pain Last Admin: 11/09/21 06:28 Dose: 4 mg Documented by: Ondansetron HCl (Ondansetron 4 Mg/2 Ml Sdv) 4 mg IVPUSH Q4H PRN PRN Reason: Nausea/Vomiting Last Admin: 11/09/21 06:24 Dose: 4 mg Documented by: Sodium Chloride (Sodium Chloride 0.9% 10 Ml Syringe) 10 ml FLUSH ASDIRECTED PRN PRN Reason: Keep Vein Open Last Admin: 11/08/21 22:02 Dose: 10 ml Documented by: Sodium Chloride (Sodium Chloride 0.9% 2.5 Ml Syringe) 2.5 ml FLUSH ASDIRECTED PRN PRN Reason: Keep Vein Open Last Admin: 11/08/21 22:04 Dose: 2.5 ml Documented by: Discontinued Medications Dexamethasone (Dexamethasone 4 Mg/Ml 5 Ml Mdv) Confirm Administered Dose 20 mg .ROUTE .STK-MED ONE Stop: 11/09/21 13:35 Dexmedetomidine HCl (Dexmedetomidine 200 Mcg/2 Ml Sdv) Confirm Administered Dose 200 mcg .ROUTE .STK-MED ONE Stop: 11/09/21 13:35 Esmolol HCl (Esmolol 100 Mg/10 Ml Sdv) Confirm Administered Dose 100 mg .ROUTE .STK-MED ONE Stop: 11/09/21 13:35 Fentanyl (Fentanyl 50 Mcg/Ml Sdv) 50 mcg IVPUSH ONETIME ONE Stop: 11/08/21 21:46 Last Admin: 11/08/21 21:58 Dose: 50 mcg Documented by: Fentanyl (Fentanyl 100 Mcg/2 Ml Sdv) Confirm Administered Dose 100 mcg .ROUTE .[facility]-MED ONE Stop: 11/09/21 13:36 Sodium Chloride (Normal Saline) 1,000 mls @ 999 mls/hr IV .Bolus ONE Stop: 11/08/21 22:45 Last Admin: 11/08/21 21:53 Dose: 999 mls/hr Documented by: Sterile Water (Sterile Water For Injection) Confirm Administered Dose 20 mls @ as directed .ROUTE .[facility]-MED ONE Stop: 11/09/21 13:37 Acetaminophen (Ofirmev 1000 Mg/100 Ml) Confirm Administered Dose 100 mls @ as [facility]: 11/09/21 14:43 Ketorolac Tromethamine (Ketorolac 30 Mg/Ml Sdv) Confirm Administered Dose 30 mg .ROUTE .[facility]-MED ONE Stop: 11/09/21 14:40 Lidocaine (Lidocaine 2% 5 Ml Sdv) Confirm Administered Dose 5 ml .ROUTE .[facility]-MED ONE Stop: 11/09/21 13:37 Midazolam HCl (Midazolam 1 Mg/Ml 2 Ml Sdv) Confirm Administered Dose 2 mg .ROUTE .[facility]-MED ONE Stop: 11/09/21 13:36 Octyl Cyanoacrylate (Octyl 2-Cyanoacrylate 1 Tube) Confirm Administered Dose 1 applic [facility]: 11/09/21 14:51 Ondansetron HCl (Ondansetron 4 Mg/2 Ml Sdv) 4 mg IVPUSH ONETIME ONE Stop: 11/08/21 21:46 Last Admin: 11/08/21 21:56 Dose: 4 mg Documented by: Ondansetron HCl (Ondansetron 4 Mg/2 Ml Sdv) Confirm Administered Dose 4 mg .ROUTE .[facility]-MED ONE Stop: 11/09/21 14:40 Propofol (Propofol 200 Mg/20 Ml Sdv) Confirm Administered Dose 200 mg .ROUTE .[facility]-MED ONE Stop: 11/09/21 13:36 Rocuronium [place] (Rocuronium [place] 50 Mg/5 Ml Syringe) Confirm Administered Dose 50 mg .ROUTE .STK-MED ONE Stop: 11/09/21 13:35 Sugammadex Sodium (Sugammadex Sodium 200 Mg/2 Ml Vial) Confirm Administered Dose 200 mg .ROUTE .STK-MED ONE Stop: 11/09/21 14:40 - Exam General: Reports: Alert, Oriented HEENT: Reports: Pupils Equal, Pupils Reactive, EOMI, Mucous Membr. Moist/[place] Neck: Reports: Supple Lungs: Reports: Clear to Auscultation, Normal Respiratory Effort Cardiovascular: Reports: Regular Rate, Regular Rhythm GI/Abdominal Exam: Normal Bowel Sounds, Soft, Non-Tender, No Organomegaly, No Distention, No Abnormal Bruit, No Mass, Pelvis Stable (Female) Exam: Normal External Exam, Normal Speculum Exam, Normal Bimanual Exam Rectal (Female) Exam: Normal Exam, Normal Rectal Tone Back Exam: Reports: Normal Inspection, Full Range of Motion Extremities: Normal Inspection, Normal Range of Motion, Non-Tender, No Pedal Edema, Normal Capillary Refill Skin: Reports: Warm, Dry, Intact Wound/Incisions: Reports: Healing Well Neurological: Reports: No New Focal Deficit Psy/Mental Status: Reports: Alert, Normal Affect, Normal Mood
--- NOTE | 2021-11-09 15:32 | PCM.POSTAN ---
POST ANESTHESIA ASSESSMENT - MENTAL STATUS Mental Status: Alert, Oriented - VITAL SIGNS Vital Signs: Last Vital Signs Temp 36 C L 11/09/21 15:00 Pulse 68 11/09/21 15:25 Resp 10 L 11/09/21 15:25 BP 104/59 L 11/09/21 15:25 Pulse Ox 98 11/09/21 15:25 - RESPIRATORY Respiratory Status: Respiratory Rate WNL, Airway Patent, O2 Saturation Stable - CARDIOVASCULAR CV Status: Pulse Rate WNL, Blood Pressure Stable - GASTROINTESTINAL GI Status: No Symptoms - POST OP HYDRATION Hydration Status: Adequate & Stable
--- NOTE | 2021-11-09 15:37 | PCM48HPAN ---
Post Anesthesia Note - EVALUATION WITHIN 48HRS OF ANESTHETIC Vital Signs in Normal Range: Yes Patient Participated in Evaluation: Yes Respiratory Function Stable: Yes Airway Patent: Yes Cardiovascular Function Stable: Yes Hydration Status Stable: Yes Pain Control Satisfactory: Yes Nausea and Vomiting Control Satisfactory: Yes Mental Status Recovered: Yes Vital Signs: Last Vital Signs Temp 36 C L 11/09/21 15:00 Pulse 68 11/09/21 15:25 Resp 10 L 11/09/21 15:25 BP 104/59 L 11/09/21 15:25 Pulse Ox 98 11/09/21 15:25
[2021-11-09] MEDS ORDERED: Acetaminophen/HYDROcodone 325-5 MG Tab PO PRN (16:30)
--- NOTE | 2021-11-10 06:52 | OR ---
SURGEON: Chapito Beltrán MD DATE OF PROCEDURE: 11/09/2021 PREOPERATIVE DIAGNOSIS: Right tubal . POSTOPERATIVE DIAGNOSIS: Right tubal . OPERATIONS PERFORMED: Multiple-puncture diagnostic laparoscopy, peritoneal lavage, right salpingectomy. FINDINGS: Ruptured right tubal with hematoperitoneum. The tubal was occupying the entire right tube. PRIMARY SURGEON: Chapito Beltrán MD P[employer]CH [employer]ESS OPERATOR: OR tech. ANESTHESIA: General endotracheal intubation. ESTIMATED BLOOD LOSS: 200 mL including the blood in the peritoneal cavity. COMPLICATIONS: None. INDICATION FOR SURGERY: Knapp is referred to the admit note. PROCEDURE: Patient brought to the OR, properly identified, and after adequate level of anesthesia, patient prepped and draped in sterile fashion as usual, and then a Hulka manipulator placed in the uterus for manipulation. The operating bladder was emptied with straight catheter, and infraumbilical incision was done with an 11-blade. Veress needle placed in the peritoneal cavity and that cavity insufflated with adequate amount of carbon dioxide, and then the central trocar 5 mm was inserted and then 5 mm scope through a 10/12 trocar placed in the right iliac fossa and 10 mm trocar in the left iliac fossa and 5 mm in the right iliac fossa. The operation started by identifying the pathology which was ruptured right tubal . Peritoneal lavage was performed at this time. I evacuated all the blood and blood clots from the peritoneal cavity and the right tubal was occupying the entire tube. Using the Harmonic scalpel, right salpingectomy performed without any problem. Again, peritoneal lavage was performed and there was no oozing, no bleeding. Inspection of the left tube and ovary essentially was normal. At this time, the procedure ended. The instrument and sponge count was correct. The patient tolerated the procedure well, went to recovery room in stable general condition. ELMER / MOOK /[id number]
== END 2021-11-09 19:24 | disposition home or self-care (01) ==
LOC: MW.ED 20:09 → MW.MS 21:47
PROVIDERS: ADMIT Obstetrics & Gynecology; ATTEND Obstetrics & Gynecology
DX: O00.101 Right tubal pregnancy without intrauterine pregnancy (principal); Z01.812 Encounter for preprocedural laboratory examination; Z20.822 Contact with and (suspected) exposure to COVID-19
CPT/HCPCS: 36415; 49329; 59151; 76801; 80053; 84702; 85014; 85018; 85025; 86850; 86900; 86901; 87635; 96374; 96375; 99285; A9270; J0131; J1885; J2250; J2270; J2405; J2704; J3010; J3490; J7030; 00840; J1100; U0002